=== PATIENT | female | born 1955 | race Caucasian/White ===

== ENCOUNTER → 2018-07-28 13:07 | Outpatient (CLI) | payer OTHER, MEDICAID, SELFPAY ==
--- NOTE | 2018-07-28 | DI.MG.S_ITS ---
BILATERAL DIGITAL SCREENING MAMMOGRAM 3D/2D WITH CAD: 07/28/2018 CLINICAL: Routine screening. Comparison is made to exams dated: 11/15/2006 mammogram - [facility] and 05/19/2003 mammogram - [facility]. The tissue of both breasts is heterogeneously dense. This may lower the sensitivity of mammography. Current study was also evaluated with a Computer Aided Detection (CAD) system. There is a new 0.5 cm oval equal density asymmetry in the right breast posterior depth inferior region seen on the mediolateral oblique view only. No other significant masses, calcifications, or other findings are seen in either breast. IMPRESSION: INCOMPLETE: NEEDS ADDITIONAL IMAGING EVALUATION The new 0.5 cm oval equal density asymmetry in the right breast is indeterminate. Additional views with possible ultrasound are recommended. This exam was interpreted at Station ID: [id number]. NOTE: For mammograms, a report in lay terms will be sent to the patient. Approximately 15% of breast malignancies will not be visualized mammographically. In the management of a palpable breast mass, a negative mammogram must not discourage biopsy of a clinically suspicious lesion. Electronically Signed By: Lico hinton/jeremias:07/28/2018 17:25:28 letter sent: Additional Imaging Needed ACR BI-RADS Category 0: Incomplete 3340F
== END ==
PROVIDERS: PCP Naturopath; Visit Provider Naturopath
DX: Z12.31 Encounter for screening mammogram for malignant neoplasm of breast (principal)
CPT/HCPCS: 77063; 77067

== ENCOUNTER → 2018-08-12 12:47 | Outpatient (CLI) | payer OTHER, MEDICAID, SELFPAY ==
--- NOTE | 2018-08-12 | DI.US.S_ITS ---
LIMITED ULTRASOUND OF RIGHT BREAST: 08/12/2018 CLINICAL: Additional evaluation requested from prior study. Comparison is made to exams dated: 08/12/2018 mammogram, 07/28/2018 mammogram, and 11/15/2006 mammogram - [facility]. Real-time and Doppler ultrasound of the right breast lower inner quadrant were performed. Whaley scale images of the real-time examination were reviewed. Targeted ultrasound of the inferior medial right breast demonstrates a 0.5 x 0.5 x 0.3 cm oval circumscribed hypoechoic cyst with internal echogenic foci, posterior acoustic enhancement, and no vascularity on Doppler ultrasound in the right breast at 4:00 position 6 cm from the nipple, located within and extending immediately beneath the skin layer with a thin tract through the overlying skin surface. This correlates with the findings seen on comparison screening and diagnostic mammography. IMPRESSION: BENIGN 1) 0.5 cm complicated cyst in the right breast at 4:00 position 6 cm from the nipple with possible thin tract through the overlying skin surface is consistent with a benign sebaceous cyst. Clinical follow-up recommended for further evaluation and management. 2) There is no sonographic evidence of malignancy in the imaged right breast. Return to annual mammogram screening schedule is recommended. The patient is advised to monitor her breasts and to return sooner for re-evaluation should she feel anything grow or change. This exam was interpreted at Station ID: [id number]. Electronically Signed By: Tulio Rodgers M.D. ecl/:08/12/2018 17:34:33 letter sent: Clinical Evaluation Ultrasound BI-RADS: 2 Benign
--- NOTE | 2018-08-12 | DI.MG.S_ITS ---
UNILATERAL RIGHT DIGITAL DIAGNOSTIC MAMMOGRAM 3D/2D WITH ADDITIONAL VIEWS: 08/12/2018 CLINICAL: Additional evaluation requested from prior study. Comparison is made to exams dated: 07/28/2018 mammogram, 11/15/2006 mammogram - [facility], and 05/19/2003 mammogram - [facility]. The tissue of right breast is heterogeneously dense. This may lower the sensitivity of mammography. Previously identified 0.5 cm oval equal density asymmetry in the right breast posterior depth inferior region seen on the mediolateral oblique view only on comparison screening mammograms persists with additional views, and localizes to the inferior medial right breast near 4:00 position on additional views. A circular marker placed on the patient's inferior medial right breast at the site of a visible skin discoloration by the magnetic resonance technologist correlates with the location of this finding. IMPRESSION: INCOMPLETE: NEEDS ADDITIONAL IMAGING EVALUATION Previously identified 0.5 cm oval equal density asymmetry in the right breast posterior depth inferior region seen on the mediolateral oblique view only on comparison screening mammograms persists with additional views, and localizes to the inferior medial right breast near 4:00 position on additional views. The finding appears to correlate with a visible skin discoloration as marked by the magnetic resonance technologist, and may be within the skin. A targeted ultrasound is recommended for further evaluation, and will be performed immediately following this exam. This exam was interpreted at Station ID: [id number]. NOTE: For mammograms, a report in lay terms will be sent to the patient. Approximately 15% of breast malignancies will not be visualized mammographically. In the management of a palpable breast mass, a negative mammogram must not discourage biopsy of a clinically suspicious lesion. Electronically Signed By: Tulio Rodgers M.D. ecl/:08/12/2018 17:27:50 ACR BI-RADS Category 0: Incomplete 3340F
== END ==
PROVIDERS: PCP Naturopath; Visit Provider Naturopath
DX: R92.8 Other abnormal and inconclusive findings on diagnostic imaging of breast (principal); N60.81 Other benign mammary dysplasias of right breast
CPT/HCPCS: 76642; 77065; G0279

== ENCOUNTER 2019-07-09 14:30 | Outpatient (RCR) | payer MEDICARE, OTHER, SELFPAY ==
--- NOTE | 2019-06-18 12:49 | PT.OIE ---
Current Diagnoses Sprain of metatarsophalangeal joint of unspecified toe(s), initial encounter (06/18/19) Visit Care Team Role Provider Type VERONICA Gan Primary Care Provider Non-Staff Specialty: Naturopathy Address: [address] [place] [address], [place], [address] Email: Dominga Rodgers DPM Attending Provider Non-Staff Referring Provider Specialty: Podiatry Address: [address] [place], [address] Email: Physical Therapy Initial Evaluation PT-OP-A Visit Information Start: 06/15/19 15:36 Freq: Status: Active Protocol: Document 06/18/19 08:15 MB (Rec: 06/18/19 08:35 MB [id number]) Out-Patient Physical Therapy Visit Information Visit Information Visit Type Initial Evaluation Visit Note Medicare, unlimited visits Visit Start Time 08:15 Visit Stop Time 08:55 Total Visit Minutes 40 Visit Number 1/unlimited PT-OP-B Current Condition Start: 06/15/19 15:36 Freq: Status: Active Protocol: Document 06/18/19 08:15 MB (Rec: 06/18/19 08:35 MB [id number]) Current Condition History of Current Condition Onset Date 04/06/2020 Current Complaints Pain across top of left foot and it is hot, cannot walk on uneven eula History of Current Condition Pt states that she fell down the steps when carrying stuff down the steps. She got distracted and then missed a step and fell 9 steps forward. She was wearing clogs. She saw design chief, 05/07/2019, and was found to have sprain left tarsal/metatarsal joint per design chief order. When she saw doctor in [place], she had an x-ray that she states was negative. She was on crutches for two weeks. She was not in a boot. She went from crutches to one crutch. She is back at work and not doing stairs. Pt states that she is so healthy, she hasn't seen a doctor for decades. She is not interested in pool therapy. She drives about an hour to work from [facility] to [place] [address]. She is only commuting 1x/wk. She is concerned that the design chief stated that soft tissue does not heal that well and she wonders about PT being helpful. Pt reports overall 2/10 pain in her left foot if she is walking on flat surface. Going up and down stairs and uneven surface cause her the most trouble. She has 3 steps and rails to enter the house and can perform reciprocal gait into the house with 1 rail. Prior Treatments and Tests PT after breaking the bones on right heel. It was helpful. Treatment Goals Patient/Caregiver Goals To decrease pain and get back to normal walking PT-OP-C Subjective Start: 06/15/19 15:36 Freq: Status: Active Protocol: Document 06/18/19 08:15 MB (Rec: 06/18/19 08:35 MB [id number]) OP-PT Subjective Patient Comments Patient Comments See history of current condition Patient Questionnaires Lower Extremity Functional Scale LEFS Impairment 40 to 59% Impaired (Score 32- 47) PT-OP-G Mobility & Gait Start: 06/15/19 15:36 Freq: Status: Active Protocol: Document 06/18/19 08:15 MB (Rec: 06/18/19 12:48 MB [id number]) OP Gait Assessment Comments Gait Comments Barefoot: Pt presents with mild edema and redness left foot (cannot see veins or extensor tendons like right foot). Gait with left foot slap on the floor, favors left foot and decreased step- length and foot clearance, decreased movement mid to forefoot on the left, decreased toe off on the left. Pt has not been using AD. PT-OP-K Range of Motion Start: 06/15/19 15:36 Freq: Status: Active Protocol: Document 06/18/19 08:15 MB (Rec: 06/18/19 12:48 MB [id number]) Ankle and Foot Goniometric Range of Motion Ankle and Foot Left Ankle/Foot ROM WFL No Testing Position Supine Dorsiflexion with Knee Extended 5 Plantarflexion 30 Inversion 5 Eversion 5 Right Testing Position Supine Dorsiflexion with Knee Extended 10 Plantarflexion 40 Inversion 40 Eversion 20 Ankle and Foot ROM Limitations Comments DF and PF assessed with starting point neutral as positioned passively by PT. R foot does feel somewhat rigid with tight gastroc as well Toe Range of Motion Toe Left MTP Extension Active (degrees) 10 Right MTP Extension Active (degrees) 20 PT-OP-M Strength Start: 06/15/19 15:36 Freq: Status: Active Protocol: Document 06/18/19 08:15 MB (Rec: 06/18/19 12:48 MB [id number]) Hip Strength Hip Manual Muscle Testing Left Flexion (L2) 5 Normal Abduction 5 Normal Right Flexion (L2) 5 Normal Abduction 5 Normal Knee Strength Knee Manual Muscle Testing Left Flexion (S2) 5 Normal Extension (L3) 5 Normal Right Flexion (S2) 5 Normal Extension (L3) 5 Normal Ankle/Foot Strength Ankle and Foot Manual Muscle Testing Left Comments MMT deferred d/t decreased AROM, injury Right Dorsiflexion (L4) 5 Normal Inversion 5 Normal Eversion (S1) 5 Normal Toe Strength Toe Manual Muscle Testing Left Great Toe Comments MMT deferred Right Great Toe Extension 3+ Fair+ PT-OP-Q Treatments Start: 06/15/19 15:36 Freq: Status: Active Protocol: Document 06/18/19 08:15 MB (Rec: 06/18/19 08:57 MB [id number]) Self-Care/Home Management Treatment Education Other Education Ed pt in icing and elevation, benefits of compression and provided Tubagrip for left foot, ed pt on the benefits of aquatic therapy and she is reluctant about this but will think about it, ed pt to try to work on normal gait pattern with toe push off with left foot with comfortable shoes and flat surface PT-OP-T Assessment and Plan Start: 06/15/19 15:36 Freq: Status: Active Protocol: Document 06/18/19 08:15 MB (Rec: 06/18/19 12:48 MB [id number]) Physical Therapy Assessment Rehab Potential Rehabilitation Potential Good Evaluation Complexity Number of Personal Factors/Comorbidities 0 Number of Body Systems Impaired 1-2 Clinical Presentation at Evaluation Stable Impairments Impairments Activity Tolerance,Balance, Coordination,Edema,Gait, Integument,Pain,ROM,Soft Tissue Mobility,Strength Goals 6 [place] Goal (LTG) Pt will perform progressive HEP including flexibility, strengthening, balance and gait exercises with I to improve strength and function by 08/17/2019. LTG Duration 8 weeks 5 [place] Goal (LTG) Pt will be able to walk her dog for at least 10 minutes on her property with reports of no more than 1/10 pain by 08/16. LTG Duration 8 weeks 4 Penitentiary Goal (LTG) Pt will present with left ankle strength 5/5 DF, eversion and inversion and great toe extension 3+/5 to equal right foot and normalize gait by 08/17/2019. LTG Duration 8 weeks 3 Penitentiary Goal (LTG) Pt will perform B SLS barefoot for at least 30 sec to improve balance by 08/17/2019. LTG Duration 8 weeks 2 Penitentiary Goal (LTG) Pt will present with improved left ankle and toe AROM to 10 deg DF, 40 deg PF, 40 deg inversion, 20 deg eversion and 20 deg great toe extension to equal right foot range and normalize gait by 08/17/2019. LTG Duration 8 weeks 1 Penitentiary Goal (LTG) Pt will present with an improved LE functional index score to reflect no more than 20% impairment to allow return to walking dog by 08/17/2019. LTG Duration 8 weeks Assessment Summary Assessment Pt is a 64 y/o female presenting with reports of overall good health though she has not followed-up regularly with a PCP for decades. She has not had a bone density test or know if she has a bone density problem. She has now had 2 months of pain in her left forefoot in set of injury on stairs and reports that x- ray of her left foot was negative. She is dx with sprain/strain. Her left foot con't to have mild edema with ankle circumference only 1 cm larger than the right ankle but ongoing erythema on the top of her foot and unable to see veins and extensor tendons like the right. She presents with decreased left ankle and great toe ROM, strength, slap of left forefoot with gait ( little mid to forefoot movement and push-off) and decreased balance. She will benefit from PT for strengthening, flexibility, balance and gait training. PT encourages her to consider aquatic PT for at least part of PT duration but she is reluctant to this but may think about it. Barriers include possible underlying mechanical change of left foot . Physical Therapy Plan Frequency and Duration Frequency of Treatment 2x/Week Duration of Treatment 8 weeks Plan of Care Start Date 06/18/19 Plan of Care End Date 08/17/19 Therapeutic Interventions Therapeutic Interventions Aquatic Therapy,Balance Training,Canalithic Repositioning,Coordination Training,Gait Training,Home Exercise Program,Joint Mobilizations,Manual Therapy, Neuromuscular Re-education, Patient/Caregiver Education, Self-Care/Home Management,Soft Tissue Mobilization,Taping, Therapeutic Activities, Therapeutic Exercises Modalities Cold Pack/Ice Massage,Electric Stimulation,Hot Packs, Ultrasound Other Therapeutic Interventions LLT Next Visit Focus/Plan Next Note Type Treatment Note Next Visit Plan Initiate exercises
--- NOTE | 2019-06-22 15:24 | PT.OTN ---
Current Diagnoses Sprain of metatarsophalangeal joint of unspecified toe(s), initial encounter (06/22/19) Physical Therapy Treatment Note PT-OP-A Visit Information Start: 06/15/19 15:36 Freq: Status: Active Protocol: Document 06/22/19 14:36 MB (Rec: 06/22/19 15:22 MB [id number]) Out-Patient Physical Therapy Visit Information Visit Information Visit Type Treatment Note Visit Note Medicare, unlimited visits Visit Start Time 14:36 Visit Stop Time 15:15 Total Visit Minutes 39 Visit Number 2/unlimited PT-OP-B Current Condition Start: 06/15/19 15:36 Freq: Status: Active Protocol: Document 06/18/19 08:15 MB (Rec: 06/18/19 08:35 MB [id number]) Current Condition History of Current Condition Onset Date 04/06/2020 Current Complaints Pain across top of left foot and it is hot, cannot walk on uneven eula History of Current Condition Pt states that she fell down the steps when carrying stuff down the steps. She got distracted and then missed a step and fell 9 steps forward. She was wearing clogs. She saw warranty manager, 05/07/2019, and was found to have sprain left tarsal/metatarsal joint per warranty manager order. When she saw doctor in [place], she had an x-ray that she states was negative. She was on crutches for two weeks. She was not in a boot. She went from crutches to one crutch. She is back at work and not doing stairs. Pt states that she is so healthy, she hasn't seen a doctor for decades. She is not interested in pool therapy. She drives about an hour to work from [facility] to [place] on [facility]. She is only commuting 1x/wk. She is concerned that the warranty manager stated that soft tissue does not heal that well and she wonders about PT being helpful. Pt reports overall 2/10 pain in her left foot if she is walking on flat surface. Going up and down stairs and uneven surface cause her the most trouble. She has 3 steps and rails to enter the house and can perform reciprocal gait into the house with 1 rail. Prior Treatments and Tests PT after breaking the bones on right heel. It was helpful. Treatment Goals Patient/Caregiver Goals To decrease pain and get back to normal walking PT-OP-C Subjective Start: 06/15/19 15:36 Freq: Status: Active Protocol: Document 06/22/19 14:36 MB (Rec: 06/22/19 15:24 MB [id number]) OP-PT Subjective Patient Comments Patient Comments Pt reports that she is sore after being on her hands and knees helping set up her [employer]. PT-OP-G Mobility & Gait Start: 06/15/19 15:36 Freq: Status: Active Protocol: Document 06/18/19 08:15 MB (Rec: 06/18/19 12:48 MB [id number]) OP Gait Assessment Comments Gait Comments Barefoot: Pt presents with mild edema and redness left foot (cannot see veins or extensor tendons like right foot). Gait with left foot slap on the floor, favors left foot and decreased step- length and foot clearance, decreased movement mid to forefoot on the left, decreased toe off on the left. Pt has not been using AD. PT-OP-K Range of Motion Start: 06/15/19 15:36 Freq: Status: Active Protocol: Document 06/18/19 08:15 MB (Rec: 06/18/19 12:48 MB [id number]) Ankle and Foot Goniometric Range of Motion Ankle and Foot Left Ankle/Foot ROM WFL No Testing Position Supine Dorsiflexion with Knee Extended 5 Plantarflexion 30 Inversion 5 Eversion 5 Right Testing Position Supine Dorsiflexion with Knee Extended 10 Plantarflexion 40 Inversion 40 Eversion 20 Ankle and Foot ROM Limitations Comments DF and PF assessed with starting point neutral as positioned passively by PT. R foot does feel somewhat rigid with tight gastroc as well Toe Range of Motion Toe Left MTP Extension Active (degrees) 10 Right MTP Extension Active (degrees) 20 PT-OP-M Strength Start: 06/15/19 15:36 Freq: Status: Active Protocol: Document 06/18/19 08:15 MB (Rec: 06/18/19 12:48 MB [id number]) Hip Strength Hip Manual Muscle Testing Left Flexion (L2) 5 Normal Abduction 5 Normal Right Flexion (L2) 5 Normal Abduction 5 Normal Knee Strength Knee Manual Muscle Testing Left Flexion (S2) 5 Normal Extension (L3) 5 Normal Right Flexion (S2) 5 Normal Extension (L3) 5 Normal Ankle/Foot Strength Ankle and Foot Manual Muscle Testing Left Comments MMT deferred d/t decreased AROM, injury Right Dorsiflexion (L4) 5 Normal Inversion 5 Normal Eversion (S1) 5 Normal Toe Strength Toe Manual Muscle Testing Left Great Toe Comments MMT deferred Right Great Toe Extension 3+ Fair+ PT-OP-Q Treatments Start: 06/15/19 15:36 Freq: Status: Active Protocol: Document 06/22/19 14:36 MB (Rec: 06/22/19 15:22 MB [id number]) Cardio Equipment Recumbent Elliptical ([place]) Duration (Minutes) 6 Resistance 6 Therapeutic Exercises Supine Exercises Hamstring, calf and AP stretch, adductors and abductors Comments 30 sec all directions, both legs Angel stretch Comments 1 rep 45 sec with abdominal drawing in and pelvic tilt Abdominal drawing in Comments 3 reps with pelvic tilt, 30 sec PT-OP-T Assessment and Plan Start: 06/15/19 15:36 Freq: Status: Active Protocol: Document 06/22/19 14:36 MB (Rec: 06/22/19 15:22 MB [id number]) Physical Therapy Assessment Rehab Potential Rehabilitation Potential Good Evaluation Complexity Number of Personal Factors/Comorbidities 0 Number of Body Systems Impaired 1-2 Clinical Presentation at Evaluation Stable Impairments Impairments Activity Tolerance,Balance, Coordination,Edema,Gait, Integument,Pain,ROM,Soft Tissue Mobility,Strength Goals 6 Senior Living Goal (LTG) Pt will perform progressive HEP including flexibility, strengthening, balance and gait exercises with I to improve strength and function by 08/17/2019. LTG Duration 8 weeks 5 Senior Living Goal (LTG) Pt will be able to walk her dog for at least 10 minutes on her property with reports of no more than 1/10 pain by 08/16. LTG Duration 8 weeks 4 Bulldozer Press Operator Goal (LTG) Pt will present with left ankle strength 5/5 DF, eversion and inversion and great toe extension 3+/5 to equal right foot and normalize gait by 08/17/2019. LTG Duration 8 weeks 3 Senior Living Goal (LTG) Pt will perform B SLS barefoot for at least 30 sec to improve balance by 08/17/2019. LTG Duration 8 weeks 2 Bulldozer Press Operator Goal (LTG) Pt will present with improved left ankle and toe AROM to 10 deg DF, 40 deg PF, 40 deg inversion, 20 deg eversion and 20 deg great toe extension to equal right foot range and normalize gait by 08/17/2019. LTG Duration 8 weeks 1 Bulldozer Press Operator Goal (LTG) Pt will present with an improved LE functional index score to reflect no more than 20% impairment to allow return to walking dog by 08/17/2019. LTG Duration 8 weeks Assessment Summary Assessment Initiated exercises today including flexibility and core awareness. Physical Therapy Plan Frequency and Duration Frequency of Treatment 2x/Week Duration of Treatment 8 weeks Plan of Care Start Date 06/18/19 Plan of Care End Date 08/17/19 Therapeutic Interventions Therapeutic Interventions Aquatic Therapy,Balance Training,Canalithic Repositioning,Coordination Training,Gait Training,Home Exercise Program,Joint Mobilizations,Manual Therapy, Neuromuscular Re-education, Patient/Caregiver Education, Self-Care/Home Management,Soft Tissue Mobilization,Taping, Therapeutic Activities, Therapeutic Exercises Modalities Cold Pack/Ice Massage,Electric Stimulation,Hot Packs, Ultrasound Other Therapeutic Interventions LLT Next Visit Focus/Plan Next Note Type Treatment Note Next Visit Plan Con't exercise progression and balance exercises. Consider therband foot exercises
--- NOTE | 2019-06-30 11:16 | PT.OTN ---
Current Diagnoses Sprain of metatarsophalangeal joint of unspecified toe(s), initial encounter (06/30/19) Physical Therapy Treatment Note PT-OP-A Visit Information Start: 06/15/19 15:36 Freq: Status: Active Protocol: Document 06/30/19 10:33 MB (Rec: 06/30/19 11:16 MB [id number]) Out-Patient Physical Therapy Visit Information Visit Information Visit Type Treatment Note Visit Note Medicare, unlimited visits Visit Start Time 10:33 Visit Stop Time 11:15 Total Visit Minutes 42 Visit Number 3/unlimited PT-OP-B Current Condition Start: 06/15/19 15:36 Freq: Status: Active Protocol: Document 06/18/19 08:15 MB (Rec: 06/18/19 08:35 MB [id number]) Current Condition History of Current Condition Onset Date 04/06/2020 Current Complaints Pain across top of left foot and it is hot, cannot walk on uneven eula History of Current Condition Pt states that she fell down the steps when carrying stuff down the steps. She got distracted and then missed a step and fell 9 steps forward. She was wearing clogs. She saw kitchen and counter worker, 05/07/2019, and was found to have sprain left tarsal/metatarsal joint per kitchen and counter worker order. When [place] saw doctor in [place], she had an x-ray that she states was negative. She was on crutches for two weeks. She was not in a boot. She went from crutches to one crutch. She is back at work and not doing stairs. Pt states that she is so healthy, she hasn't seen a doctor for decades. She is not interested in pool therapy. She drives about an hour to work from [facility] to [place] on [address] [facility]. She is only commuting 1x/wk. She is concerned that the kitchen and counter worker stated that soft tissue does not heal that well and she wonders about PT being helpful. Pt reports overall 2/10 pain in her left foot if she is walking on flat surface. Going up and down stairs and uneven surface cause her the most trouble. She has 3 steps and rails to enter the house and can perform reciprocal gait into the house with 1 rail. Prior Treatments and Tests PT after breaking the bones on right heel. It was helpful. Treatment Goals Patient/Caregiver Goals To decrease pain and get back to normal walking PT-OP-C Subjective Start: 06/15/19 15:36 Freq: Status: Active Protocol: Document 06/30/19 10:33 MB (Rec: 06/30/19 11:16 MB [id number]) OP-PT Subjective Patient Comments Patient Comments Pt states that she is doing really good. She went [place] vacation to the [place]. She did not walk on the beach but did walk in town. The foot feels better in the evening and does not feel that she has to put it up all the time. She feels there is less swelling. She did not ice. She does not like to do exercises on her bed. She wants to progress to standing exercises . PT-OP-G Mobility & Gait Start: 06/15/19 15:36 Freq: Status: Active Protocol: Document 06/18/19 08:15 MB (Rec: 06/18/19 12:48 MB [id number]) OP Gait Assessment Comments Gait Comments Barefoot: Pt presents with mild edema and redness left foot (cannot see veins or extensor tendons like right foot). Gait with left foot slap on the floor, favors left foot and decreased step- length and foot clearance, decreased movement mid to forefoot on the left, decreased toe off on the left. Pt has not been using AD. PT-OP-K Range of Motion Start: 06/15/19 15:36 Freq: Status: Active Protocol: Document 06/18/19 08:15 MB (Rec: 06/18/19 12:48 MB [id number]) Ankle and Foot Goniometric Range of Motion Ankle and Foot Left Ankle/Foot ROM WFL No Testing Position Supine Dorsiflexion with Knee Extended 5 Plantarflexion 30 Inversion 5 Eversion 5 Right Testing Position Supine Dorsiflexion with Knee Extended 10 Plantarflexion 40 Inversion 40 Eversion 20 Ankle and Foot ROM Limitations Comments DF and PF assessed with starting point neutral as positioned passively by PT. R foot does feel somewhat rigid with tight gastroc as well Toe Range of Motion Toe Left MTP Extension Active (degrees) 10 Right MTP Extension Active (degrees) 20 PT-OP-M Strength Start: 06/15/19 15:36 Freq: Status: Active Protocol: Document 06/18/19 08:15 MB (Rec: 06/18/19 12:48 MB [id number]) Hip Strength Hip Manual Muscle Testing Left Flexion (L2) 5 Normal Abduction 5 Normal Right Flexion (L2) 5 Normal Abduction 5 Normal Knee Strength Knee Manual Muscle Testing Left Flexion (S2) 5 Normal Extension (L3) 5 Normal Right Flexion (S2) 5 Normal Extension (L3) 5 Normal Ankle/Foot Strength Ankle and Foot Manual Muscle Testing Left Comments MMT deferred d/t decreased AROM, injury Right Dorsiflexion (L4) 5 Normal Inversion 5 Normal Eversion (S1) 5 Normal Toe Strength Toe Manual Muscle Testing Left Great Toe Comments MMT deferred Right Great Toe Extension 3+ Fair+ PT-OP-Q Treatments Start: 06/15/19 15:36 Freq: Status: Active Protocol: Document 06/30/19 10:33 MB (Rec: 06/30/19 11:16 MB [id number]) Cardio Equipment Recumbent Elliptical ([employer]ell[employer]) Duration (Minutes) 8 Resistance 7 Therapeutic Exercises Supine Exercises Angel stretch Comments B legs 45 sec with abdominal drawing in Abdominal drawing in Comments 5 reps, hold throughout Angel stretch Sitting Exercises Ankle eversion and DF Comments Level 1 band, 10 reps x2 Hammock exercises for ankle strengthening and plantar fascia stretch with theraband Comments B feet with AP, toe flexion and plantar flexion stretch today Standing Exercises Gastroc, soleus stretch and heel and toe raises Comments 1 rep each stretch B, 10 reps raises to improve flexibility, love davis PT-OP-T Assessment and Plan Start: 06/15/19 15:36 Freq: Status: Active Protocol: Document 06/30/19 10:33 MB (Rec: 06/30/19 11:16 MB [id number]) Physical Therapy Assessment Rehab Potential Rehabilitation Potential Good Evaluation Complexity Number of Personal Factors/Comorbidities 0 Number of Body Systems Impaired 1-2 Clinical Presentation at Evaluation Stable Impairments Impairments Activity Tolerance,Balance, Coordination,Edema,Gait, Integument,Pain,ROM,Soft Tissue Mobility,Strength Goals 6 Time Recorder Goal (LTG) Pt will perform progressive HEP including flexibility, strengthening, balance and gait exercises with I to improve strength and function by 08/17/2019. LTG Duration 8 weeks 5 Shelter Goal (LTG) Pt will be able to walk her dog for at least 10 minutes on her property with reports of no more than 1/10 pain by 08/16. LTG Duration 8 weeks 4 Time Recorder Goal (LTG) Pt will present with left ankle strength 5/5 DF, eversion and inversion and great toe extension 3+/5 to equal right foot and normalize gait by 08/17/2019. LTG Duration 8 weeks 3 Shelter Goal (LTG) Pt will perform B SLS barefoot for at least 30 sec to improve balance by 08/17/2019. LTG Duration 8 weeks 2 Time Recorder Goal (LTG) Pt will present with improved left ankle and toe AROM to 10 deg DF, 40 deg PF, 40 deg inversion, 20 deg eversion and 20 deg great toe extension to equal right foot range and normalize gait by 08/17/2019. LTG Duration 8 weeks 1 Shelter Goal (LTG) Pt will present with an improved LE functional index score to reflect no more than 20% impairment to allow return to walking dog by 08/17/2019. LTG Duration 8 weeks Assessment Summary Assessment Progressed strengthening and flexibility exercises today. Pt performs well. Physical Therapy Plan Frequency and Duration Frequency of Treatment 2x/Week Duration of Treatment 8 weeks Plan of Care Start Date 06/18/19 Plan of Care End Date 08/17/19 Therapeutic Interventions Therapeutic Interventions Aquatic Therapy,Balance Training,Canalithic Repositioning,Coordination Training,Gait Training,Home Exercise Program,Joint Mobilizations,Manual Therapy, Neuromuscular Re-education, Patient/Caregiver Education, Self-Care/Home Management,Soft Tissue Mobilization,Taping, Therapeutic Activities, Therapeutic Exercises Modalities Cold Pack/Ice Massage,Electric Stimulation,Hot Packs, Ultrasound Other Therapeutic Interventions LLT Next Visit Focus/Plan Next Note Type Treatment Note Next Visit Plan Con't exercise progression for hip strengthening and balance exercises, consider multifidi engagement with heel raises
--- NOTE | 2019-07-06 15:15 | PT.OTN ---
Current Diagnoses Sprain of metatarsophalangeal joint of unspecified toe(s), initial encounter (07/06/19) Physical Therapy Treatment Note PT-OP-A Visit Information Start: 06/15/19 15:36 Freq: Status: Active Protocol: Document 07/06/19 14:35 MB (Rec: 07/06/19 15:15 MB [id number]) Out-Patient Physical Therapy Visit Information Visit Information Visit Type Treatment Note Visit Note Medicare, unlimited visits Visit Start Time 14:35 Visit Stop Time 15:15 Total Visit Minutes 40 Visit Number 4/unlimited PT-OP-B Current Condition Start: 06/15/19 15:36 Freq: Status: Active Protocol: Document 06/18/19 08:15 MB (Rec: 06/18/19 08:35 MB [id number]) Current Condition History of Current Condition Onset Date 04/06/2020 Current Complaints Pain across top of left foot and it is hot, cannot walk on uneven eula History of Current Condition Pt states that she fell down the steps when carrying stuff down the steps. She got distracted and then missed a step and fell 9 steps forward. She was wearing clogs. She saw emergency physician, 05/07/2019, and was found to have sprain left tarsal/metatarsal joint per emergency physician order. When she saw doctor in [place], she had an x-ray that she states was negative. She was on crutches for two weeks. She was not in a boot. She went from crutches to one crutch. She is back at work and not doing stairs. Pt states that she is so healthy, she hasn't seen a doctor for decades. She is not interested in pool therapy. She drives about an hour to work from [facility] to [place] on [address]. She is only commuting 1x/wk. She is concerned that the emergency physician stated that soft tissue does not heal that well and she wonders about PT being helpful. Pt reports overall 2/10 pain in her left foot if she is walking on flat surface. Going up and down stairs and uneven surface cause her the most trouble. She has 3 steps and rails to enter the house and can perform reciprocal gait into the house with 1 rail. Prior Treatments and Tests PT after breaking the bones on right heel. It was helpful. Treatment Goals Patient/Caregiver Goals To decrease pain and get back to normal walking PT-OP-C Subjective Start: 06/15/19 15:36 Freq: Status: Active Protocol: Document 07/06/19 14:35 MB (Rec: 07/06/19 15:15 MB [id number]) OP-PT Subjective Patient Comments Patient Comments Pt states that she is feeling better. She walked her dog on her leash. PT-OP-G Mobility & Gait Start: 06/15/19 15:36 Freq: Status: Active Protocol: Document 06/18/19 08:15 MB (Rec: 06/18/19 12:48 MB [id number]) OP Gait Assessment Comments Gait Comments Barefoot: Pt presents with mild edema and redness left foot (cannot see veins or extensor tendons like right foot). Gait with left foot slap on the floor, favors left foot and decreased step- length and foot clearance, decreased movement mid to forefoot on the left, decreased toe off on the left. Pt has not been using AD. PT-OP-K Range of Motion Start: 06/15/19 15:36 Freq: Status: Active Protocol: Document 06/18/19 08:15 MB (Rec: 06/18/19 12:48 MB [id number]) Ankle and Foot Goniometric Range of Motion Ankle and Foot Left Ankle/Foot ROM WFL No Testing Position Supine Dorsiflexion with Knee Extended 5 Plantarflexion 30 Inversion 5 Eversion 5 Right Testing Position Supine Dorsiflexion with Knee Extended 10 Plantarflexion 40 Inversion 40 Eversion 20 Ankle and Foot ROM Limitations Comments DF and PF assessed with starting point neutral as positioned passively by PT. R foot does feel somewhat rigid with tight gastroc as well Toe Range of Motion Toe Left MTP Extension Active (degrees) 10 Right MTP Extension Active (degrees) 20 PT-OP-M Strength Start: 06/15/19 15:36 Freq: Status: Active Protocol: Document 06/18/19 08:15 MB (Rec: 06/18/19 12:48 MB [id number]) Hip Strength Hip Manual Muscle Testing Left Flexion (L2) 5 Normal Abduction 5 Normal Right Flexion (L2) 5 Normal Abduction 5 Normal Knee Strength Knee Manual Muscle Testing Left Flexion (S2) 5 Normal Extension (L3) 5 Normal Right Flexion (S2) 5 Normal Extension (L3) 5 Normal Ankle/Foot Strength Ankle and Foot Manual Muscle Testing Left Comments MMT deferred d/t decreased AROM, injury Right Dorsiflexion (L4) 5 Normal Inversion 5 Normal Eversion (S1) 5 Normal Toe Strength Toe Manual Muscle Testing Left Great Toe Comments MMT deferred Right Great Toe Extension 3+ Fair+ PT-OP-Q Treatments Start: 06/15/19 15:36 Freq: Status: Active Protocol: Document 07/06/19 14:35 MB (Rec: 07/06/19 15:15 MB [id number]) Cardio Equipment Recumbent Elliptical ([email or web address]) Duration (Minutes) 10 Resistance 6-7 Therapeutic Exercises Standing Exercises Hip abduction and extension level 1 band Comments 10 reps B Crab walking with level 1 band Comments Side stepping x5 reps x6 reps Manual Therapy Treatment Other Other Manual Treatments STM left foot, calf, gentle mobs phalanges, tarsals PT-OP-T Assessment and Plan Start: 06/15/19 15:36 Freq: Status: Active Protocol: Document 07/06/19 14:35 MB (Rec: 07/06/19 15:15 MB [id number]) Physical Therapy Assessment Rehab Potential Rehabilitation Potential Good Evaluation Complexity Number of Personal Factors/Comorbidities 0 Number of Body Systems Impaired 1-2 Clinical Presentation at Evaluation Stable Impairments Impairments Activity Tolerance,Balance, Coordination,Edema,Gait, Integument,Pain,ROM,Soft Tissue Mobility,Strength Goals 6 Violin Tutor Goal (LTG) Pt will perform progressive HEP including flexibility, strengthening, balance and gait exercises with I to improve strength and function by 08/17/2019. LTG Duration 8 weeks 5 Violin Tutor Goal (LTG) Pt will be able to walk her dog for at least 10 minutes on her property with reports of no more than 1/10 pain by 08/16. LTG Duration 8 weeks 4 Mcfp Goal (LTG) Pt will present with left ankle strength 5/5 DF, eversion and inversion and great toe extension 3+/5 to equal right foot and normalize gait by 08/17/2019. LTG Duration 8 weeks 3 Mcfp Goal (LTG) Pt will perform B SLS barefoot for at least 30 sec to improve balance by 08/17/2019. LTG Duration 8 weeks 2 Mcfp Goal (LTG) Pt will present with improved left ankle and toe AROM to 10 deg DF, 40 deg PF, 40 deg inversion, 20 deg eversion and 20 deg great toe extension to equal right foot range and normalize gait by 08/17/2019. LTG Duration 8 weeks 1 Violin Tutor Goal (LTG) Pt will present with an improved LE functional index score to reflect no more than 20% impairment to allow return to walking dog by 08/17/2019. LTG Duration 8 weeks Assessment Summary Assessment Progressed hip strengthening today. Con't balance and ankle strengthening. Physical Therapy Plan Frequency and Duration Frequency of Treatment 2x/Week Duration of Treatment 8 weeks Plan of Care Start Date 06/18/19 Plan of Care End Date 08/17/19 Therapeutic Interventions Therapeutic Interventions Aquatic Therapy,Balance Training,Canalithic Repositioning,Coordination Training,Gait Training,Home Exercise Program,Joint Mobilizations,Manual Therapy, Neuromuscular Re-education, Patient/Caregiver Education, Self-Care/Home Management,Soft Tissue Mobilization,Taping, Therapeutic Activities, Therapeutic Exercises Modalities Cold Pack/Ice Massage,Electric Stimulation,Hot Packs, Ultrasound Other Therapeutic Interventions LLT Next Visit Focus/Plan Next Note Type Treatment Note Next Visit Plan Con't exercise progression for hip strengthening and balance exercises, consider multifidi engagement with heel raises
--- NOTE | 2019-07-09 15:16 | PT.OTN ---
Current Diagnoses Sprain of metatarsophalangeal joint of unspecified toe(s), initial encounter (07/09/19) Physical Therapy Treatment Note PT-OP-A Visit Information Start: 06/15/19 15:36 Freq: Status: Active Protocol: Document 07/09/19 14:34 MB (Rec: 07/09/19 15:15 MB [id number]) Out-Patient Physical Therapy Visit Information Visit Information Visit Type Treatment Note Visit Note Medicare, unlimited visits Visit Start Time 14:34 Visit Stop Time 15:15 Total Visit Minutes 41 Visit Number 5/unlimited PT-OP-B Current Condition Start: 06/15/19 15:36 Freq: Status: Active Protocol: Document 06/18/19 08:15 MB (Rec: 06/18/19 08:35 MB [id number]) Current Condition History of Current Condition Onset Date 04/06/2020 Current Complaints Pain across top of left foot and it is hot, cannot walk on uneven eula History of Current Condition Pt states that she fell down the steps when carrying stuff down the steps. She got distracted and then missed a step and fell 9 steps forward. She was wearing clogs. She saw gasoline tester, 05/07/2019, and was found to have sprain left tarsal/metatarsal joint per gasoline tester order. When she saw doctor in [place], she had an x-ray that she states was negative. She was on crutches for two weeks. She was not in a boot. She went from crutches to one crutch. She is back at work and not doing stairs. Pt states that she is so healthy, she hasn't seen a doctor for decades. She is not interested in pool therapy. She drives about an hour to work from [facility] to [place] on [address]. She is only commuting 1x/wk. She is concerned that the gasoline tester stated that soft tissue does not heal that well and she wonders about PT being helpful. Pt reports overall 2/10 pain in her left foot if she is walking on flat surface. Going up and down stairs and uneven surface cause her the most trouble. She has 3 steps and rails to enter the house and can perform reciprocal gait into the house with 1 rail. Prior Treatments and Tests PT after breaking the bones on right heel. It was helpful. Treatment Goals Patient/Caregiver Goals To decrease pain and get back to normal walking PT-OP-C Subjective Start: 06/15/19 15:36 Freq: Status: Active Protocol: Document 07/09/19 14:34 MB (Rec: 07/09/19 15:15 MB [id number]) OP-PT Subjective Patient Comments Patient Comments Pt reports that she was a little sore. She did take her dog for a longer walk. PT-OP-G Mobility & Gait Start: 06/15/19 15:36 Freq: Status: Active Protocol: Document 06/18/19 08:15 MB (Rec: 06/18/19 12:48 MB [id number]) OP Gait Assessment Comments Gait Comments Barefoot: Pt presents with mild edema and redness left foot (cannot see veins or extensor tendons like right foot). Gait with left foot slap on the floor, favors left foot and decreased step- length and foot clearance, decreased movement mid to forefoot on the left, decreased toe off on the left. Pt has not been using AD. PT-OP-K Range of Motion Start: 06/15/19 15:36 Freq: Status: Active Protocol: Document 06/18/19 08:15 MB (Rec: 06/18/19 12:48 MB [id number]) Ankle and Foot Goniometric Range of Motion Ankle and Foot Left Ankle/Foot ROM WFL No Testing Position Supine Dorsiflexion with Knee Extended 5 Plantarflexion 30 Inversion 5 Eversion 5 Right Testing Position Supine Dorsiflexion with Knee Extended 10 Plantarflexion 40 Inversion 40 Eversion 20 Ankle and Foot ROM Limitations Comments DF and PF assessed with starting point neutral as positioned passively by PT. R foot does feel somewhat rigid with tight gastroc as well Toe Range of Motion Toe Left MTP Extension Active (degrees) 10 Right MTP Extension Active (degrees) 20 PT-OP-M Strength Start: 06/15/19 15:36 Freq: Status: Active Protocol: Document 06/18/19 08:15 MB (Rec: 06/18/19 12:48 MB [id number]) Hip Strength Hip Manual Muscle Testing Left Flexion (L2) 5 Normal Abduction 5 Normal Right Flexion (L2) 5 Normal Abduction 5 Normal Knee Strength Knee Manual Muscle Testing Left Flexion (S2) 5 Normal Extension (L3) 5 Normal Right Flexion (S2) 5 Normal Extension (L3) 5 Normal Ankle/Foot Strength Ankle and Foot Manual Muscle Testing Left Comments MMT deferred d/t decreased AROM, injury Right Dorsiflexion (L4) 5 Normal Inversion 5 Normal Eversion (S1) 5 Normal Toe Strength Toe Manual Muscle Testing Left Great Toe Comments MMT deferred Right Great Toe Extension 3+ Fair+ PT-OP-Q Treatments Start: 06/15/19 15:36 Freq: Status: Active Protocol: Document 07/09/19 14:34 MB (Rec: 07/09/19 15:15 MB [id number]) Cardio Equipment Recumbent Elliptical ([employer]) Duration (Minutes) 10 Resistance 5 Therapeutic Exercises Supine Exercises Core progression Comments Abdominal drawing in, HS, rotation, mini march, knee fall out, 2 reps all Standing Exercises Tandem standing in corner with eyes open and closed Comments Performed 4 times, up to 1 minute, closes eyes a few seconds Other Exercises Answered all questions about exercises Comments Pt particularly needed help with crab stepping PT-OP-T Assessment and Plan Start: 06/15/19 15:36 Freq: Status: Active Protocol: Document 07/09/19 14:34 MB (Rec: 07/09/19 15:15 MB [id number]) Physical Therapy Assessment Rehab Potential Rehabilitation Potential Good Evaluation Complexity Number of Personal Factors/Comorbidities 0 Number of Body Systems Impaired 1-2 Clinical Presentation at Evaluation Stable Impairments Impairments Activity Tolerance,Balance, Coordination,Edema,Gait, Integument,Pain,ROM,Soft Tissue Mobility,Strength Goals 6 Eye Clinic Manager Goal (LTG) Pt will perform progressive HEP including flexibility, strengthening, balance and gait exercises with I to improve strength and function by 08/17/2019. LTG Duration 8 weeks 5 Eye Clinic Manager Goal (LTG) Pt will be able to walk her dog for at least 10 minutes on her property with reports of no more than 1/10 pain by 08/16. LTG Duration 8 weeks 4 Longterm Goal (LTG) Pt will present with left ankle strength 5/5 DF, eversion and inversion and great toe extension 3+/5 to equal right foot and normalize gait by 08/17/2019. LTG Duration 8 weeks 3 Longterm Goal (LTG) Pt will perform B SLS barefoot for at least 30 sec to improve balance by 08/17/2019. LTG Duration 8 weeks 2 Eye Clinic Manager Goal (LTG) Pt will present with improved left ankle and toe AROM to 10 deg DF, 40 deg PF, 40 deg inversion, 20 deg eversion and 20 deg great toe extension to equal right foot range and normalize gait by 08/17/2019. LTG Duration 8 weeks 1 Eye Clinic Manager Goal (LTG) Pt will present with an improved LE functional index score to reflect no more than 20% impairment to allow return to walking dog by 08/17/2019. LTG Duration 8 weeks Assessment Summary Assessment Progressed core and balance exercises today. She would like to con't with exercises at home and stop PT for two weeks, keeping Ileana appointments at this time. Physical Therapy Plan Frequency and Duration Frequency of Treatment 2x/Week Duration of Treatment 8 weeks Plan of Care Start Date 06/18/19 Plan of Care End Date 08/17/19 Therapeutic Interventions Therapeutic Interventions Aquatic Therapy,Balance Training,Canalithic Repositioning,Coordination Training,Gait Training,Home Exercise Program,Joint Mobilizations,Manual Therapy, Neuromuscular Re-education, Patient/Caregiver Education, Self-Care/Home Management,Soft Tissue Mobilization,Taping, Therapeutic Activities, Therapeutic Exercises Modalities Cold Pack/Ice Massage,Electric Stimulation,Hot Packs, Ultrasound Other Therapeutic Interventions LLT Next Visit Focus/Plan Next Note Type Treatment Note Next Visit Plan Con't exercise progression for hip strengthening and balance exercises, consider multifidi engagement with heel raises
--- NOTE | 2019-08-01 13:43 | PT-OP ANOTE ---
PT calls pt and leaves message with PT work email address and requests pt to contact PT re: PT plan.
--- NOTE | 2019-08-15 16:49 | PT-OP ANOTE ---
PT calls pt and leaves message. PT communicates that we do not know yet when clinic will reopen, that clinic hours will be limited to begin with, that therapists and patients will wear masks and that the gym situation will allow for 6 feet between patients. PT communicates that pt can decide if she wants to con't with PT when the clinic opens pending her current functional status and I with HEP.
--- NOTE | 2019-08-28 09:28 | PT.OPDS ---
Current Diagnoses Sprain of metatarsophalangeal joint of unspecified toe(s), initial encounter (07/09/19) Visit Care Team Role Provider Type VERONICA Gan Primary Care Provider Non-Staff Specialty: Naturopathy Address: [address] [place] [address], [place], [address] Email: Dominga Rodgers DPM Attending Provider Non-Staff Referring Provider Specialty: Podiatry Address: [address] [facility], [place], [address] Email: Visit Number Visit Number 5/unlimited Discharge Summary PT-OP-B Current Condition Start: 06/15/19 15:36 Freq: Status: Active Protocol: Document 06/18/19 08:15 MB (Rec: 06/18/19 08:35 MB [id number]) Current Condition History of Current Condition Onset Date 04/06/2020 Current Complaints Pain across top of left foot and it is hot, cannot walk on uneven eula History of Current Condition Pt states that she fell down the steps when carrying stuff down the steps. She got distracted and then missed a step and fell 9 steps forward. She was wearing clogs. She saw bucket pusher, 05/07/2019, and was found to have sprain left tarsal/metatarsal joint per bucket pusher order. When she saw doctor in [place], she had an x-ray that she states was negative. She was on crutches for two weeks. She was not in a boot. She went from crutches to one crutch. She is back at work and not doing stairs. Pt states that she is so healthy, she hasn't seen a doctor for decades. She is not interested in pool therapy. She drives about an hour to work from [facility] to [place] on its learning. She is only commuting 1x/wk. She is concerned that the bucket pusher stated that soft tissue does not heal that well and she wonders about PT being helpful. Pt reports overall 2/10 pain in her left foot if she is walking on flat surface. Going up and down stairs and uneven surface cause her the most trouble. She has 3 steps and rails to enter the house and can perform reciprocal gait into the house with 1 rail. Prior Treatments and Tests PT after breaking the bones on right heel. It was helpful. Treatment Goals Patient/Caregiver Goals To decrease pain and get back to normal walking PT-OP-C Subjective Start: 06/15/19 15:36 Freq: Status: Active Protocol: Document 07/09/19 14:34 MB (Rec: 07/09/19 15:15 MB [id number]) OP-PT Subjective Patient Comments Patient Comments Pt reports that she was a little sore. She did take her dog for a longer walk. PT-OP-G Mobility & Gait Start: 06/15/19 15:36 Freq: Status: Active Protocol: Document 06/18/19 08:15 MB (Rec: 06/18/19 12:48 MB [id number]) OP Gait Assessment Comments Gait Comments Barefoot: Pt presents with mild edema and redness left foot (cannot see veins or extensor tendons like right foot). Gait with left foot slap on the floor, favors left foot and decreased step- length and foot clearance, decreased movement mid to forefoot on the left, decreased toe off on the left. Pt has not been using AD. PT-OP-K Range of Motion Start: 06/15/19 15:36 Freq: Status: Active Protocol: Document 06/18/19 08:15 MB (Rec: 06/18/19 12:48 MB [id number]) Ankle and Foot Goniometric Range of Motion Ankle and Foot Left Ankle/Foot ROM WFL No Testing Position Supine Dorsiflexion with Knee Extended 5 Plantarflexion 30 Inversion 5 Eversion 5 Right Testing Position Supine Dorsiflexion with Knee Extended 10 Plantarflexion 40 Inversion 40 Eversion 20 Ankle and Foot ROM Limitations Comments DF and PF assessed with starting point neutral as positioned passively by PT. R foot does feel somewhat rigid with tight gastroc as well Toe Range of Motion Toe Left MTP Extension Active (degrees) 10 Right MTP Extension Active (degrees) 20 PT-OP-M Strength Start: 06/15/19 15:36 Freq: Status: Active Protocol: Document 06/18/19 08:15 MB (Rec: 06/18/19 12:48 MB [id number]) Hip Strength Hip Manual Muscle Testing Left Flexion (L2) 5 Normal Abduction 5 Normal Right Flexion (L2) 5 Normal Abduction 5 Normal Knee Strength Knee Manual Muscle Testing Left Flexion (S2) 5 Normal Extension (L3) 5 Normal Right Flexion (S2) 5 Normal Extension (L3) 5 Normal Ankle/Foot Strength Ankle and Foot Manual Muscle Testing Left Comments MMT deferred d/t decreased AROM, injury Right Dorsiflexion (L4) 5 Normal Inversion 5 Normal Eversion (S1) 5 Normal Toe Strength Toe Manual Muscle Testing Left Great Toe Comments MMT deferred Right Great Toe Extension 3+ Fair+ PT-OP-T Assessment and Plan Start: 06/15/19 15:36 Freq: Status: Active Protocol: Document 08/28/19 09:27 MB (Rec: 08/28/19 09:28 MB [id number]) Physical Therapy Plan Discharge Physical Therapy Discharge Reasons Patient Request Discharge Comments Pt emails PT and states that she would like to d/c PT, her foot is feeling better. Will d /c PT.
== END 2019-08-31 09:58 ==
LOC: PHYS 14:30
PROVIDERS: PCP Registered Nurse; Referring Provider Podiatrist; Visit Provider Podiatrist
DX: S93.529A Sprain of metatarsophalangeal joint of unspecified toe(s), initial encounter (principal)
CPT/HCPCS: 97110; 97140; 97161; 97535